=== PATIENT | male | born 1985 | race African-American/Black ===

== ENCOUNTER 2016-03-09 19:47 | Emergency (ER) | payer SELFPAY ==
[~2016-03-09] VITALS: Ht 177.8 cm; Wt 95.3 kg
[~2016-03-09 19:47] MED LIST: AMLODIPINE-ATO1 EAC2 ORAL; COZAAR50 MG ORAL; HYDROCHLOROTHIA25 MG ORAL; LIPITOR80 MG ORAL; NIFEDIPINE XL30 M1 ORAL; NKM; PROCARDIA XL60 MG ORAL
[2016-03-09] MEDS ORDERED: IBUPROFEN600 MG ORAL (21:05)
[2016-03-09 21:25] VITALS: BP 202/142
--- NOTE | 2016-03-09 23:10 | Emergency Room Report ---
History of Present Illness General Chief Complaint: Pain Source: Patient Present Illness HPI The pt is a 31yo M presenting for R ankle pain after slipping in the restroom today. The pt states he did not fall but felt his ankle buckle underneath him. THe pain is described as an 8/10 dull ache and does not radiate from the ankle. Pt denies numbness or tingling. Pt denies prior injury to the ankle. Pain is worse with movement. Allergies: Coded Allergies: No Known Allergies (Unverified , 03/12/13) Patient History Past Medical History: see triage record Pertinent Family History: none Reviewed Nursing Documentation: PMH: Agreed, PSxH: Agreed Nursing Documentation-PMH Past Medical History: No History, Except For Hx Cardiac Problems: Yes Hx Hypertension: Yes Hx Cancer: No Hx Gastrointestinal Problems: No Hx Neurological Problems: No Review of Systems All Other Systems: negative except mentioned in HPI Physical Exam Vital Signs Date Time Temp Pulse Resp B/P Pulse Ox O2 Delivery O2 Flow Rate FiO2 03/09/16 20:16 98.1 87 14 195/129 99 Room Air Sp02 EP Interpretation: reviewed, normal General Appearance: no apparent distress, alert, GCS 15, non-toxic Head: normocephalic, atraumatic Eyes: bilateral eye PERRL, bilateral eye normal inspection Musculoskeletal: decreased range of motion - of ankle, swelling - 1+ non pitting edema to ankle, tender - TTP mostly over lateral mal Neurologic: alert, oriented x3, responsive, motor strength/tone normal, sensory intact, speech normal Psychiatric: judgement/insight normal, memory normal, mood/affect normal, no suicidal/homicidal ideation Skin: normal color, no rash, warm/dry, well hydrated Procedures Splinting Splinting : Consent: Verbal Location: R ankle Pre-Made Type: DI wrap Pre-Proc Neuro Vasc Exam: normal Post-Proc Neuro Vasc Exam: normal Patient Tolerated: Well Complications: None Medical Decision Making PA Attestation Dr. Kathleen is my supervising physician. Patient management was discussed with my supervising physician Diagnostic Impression: Primary Impression: Ankle sprain ER Course The pt is a 31yo M presenting for R ankle pain after slipping in the restroom today Ddx considered include but not limited to sprain/strain, fracture, contusion PE: Vitals WNL. NAD. R ankle: Skin intact. No erythema. 1+ non pitting edema. Sensation intact to light touch. Decreased AROM of ankle. No bony tenderness. No joint laxity. No obvious deformity Xray of the R ankle is unremarkable for fracture or dislocation. The pt is placed in DI wrap and given crutches. Pt given motrin for pain The pt is DC'ed home with prescription for motrin and will FU with PMD Other X-Ray Diagnostic Results Other X-Ray Diagnostic Results : X-Ray Ordered: R ankle Date: Mar 09, 2016 EP Interpretation: Yes Findings: no fractures, no dislocation, no soft tissue swelling Number of Views: 3 PA Scribe Text I am acting as scribe for my supervising physician. My supervising physician's interpretation of the R ankle xrays are there are no fractures, dislocations or soft tissue swelling. Last Vital Signs Date Time Temp Pulse Resp B/P Pulse Ox O2 Delivery O2 Flow Rate FiO2 03/09/16 21:26 98.1 03/09/16 21:25 80 14 202/142 100 Room Air Status: improved Disposition: HOME, SELF-CARE Condition: Improved Scripts Ibuprofen* (MOTRIN*) 600 Mg Tablet 600 MG ORAL Q8H Y for For Pain, #30 TAB 0 Refills Prov: OMAYRA CANCINO 03/09/16 Departure Forms: Return to Work Return to Work Date: Mar 11, 2016 Patient Instructions: Ankle Sprain Additional Instructions: I discussed my findings with the patient. All questions and concerns have been answered. Treatment and medication compliance have been addressed. I advised the patient that they need to follow up with PMD in 3-5 days. Return to ED if pain remains or worsens, numbness or tingling occurs, new rash is noticed, fever is noticed, or if needed for any reason. Patient verbalized understanding of discharge instructions. OMAYRA CANCINO Mar 09, 2016 23:10
--- NOTE | 2016-03-10 09:10 | Diagnostic Imaging Report ---
Indication: PAIN Technique: 3 views of the ankle Comparison: none Findings: No acute fractures. No dislocations. Joint spaces are preserved Impression: Negative
== END 2016-03-09 21:30 | disposition home or self-care (01) ==
LOC: EMR 20:59
DX: S93.401A Sprain of unspecified ligament of right ankle, initial encounter (principal); W18.40XA Slipping, tripping and stumbling without falling, unspecified, initial encounter; Y93.9 Activity, unspecified; Y99.9 Unspecified external cause status; I10 Essential (primary) hypertension; M25.571 Pain in right ankle and joints of right foot
CPT/HCPCS: 99283